=== PATIENT | female | born 1995 | race African-American/Black ===

== ENCOUNTER 2016-11-29 12:03 | Emergency (ER) | payer SELFPAY ==
[~2016-11-29] VITALS: Ht 152.4 cm; Wt 77.0 kg
[2016-11-29] MEDS ORDERED: ALBUTEROL (0.083%) 2.5MG/3ML NEB HHN STA (12:47)
[2016-11-29] MEDS ORDERED: SODIUM CHLORIDE 0.9% 1,000 ML IV ONE ×2 (12:47→14:00)
[2016-11-29] MEDS ORDERED: ACETAMINOPHEN 325MG TABLET PO STA (12:47)
[2016-11-29] MEDS ORDERED: KETOROLAC 30MG/ML VIAL IV STA (12:47)
[2016-11-29 13:09] LABS: BASOPHILS % 0.2 % (0.0-2.0); DIFFERENTIAL COMMENT 0; EOSINOPHILS % 0.1 % (0.0-5.0); HEMATOCRIT. 36.1 % (36.0-48.0); HEMOGLOBIN. 11.6 g/dL (12.0-16.0); LYMPHOCYTES % 19.7 % (20.0-50.0); MEAN CORPUSCULAR HEMOGLOBIN 24.3 pg (28.0-32.0); MEAN CORPUSCULAR HGB CONC 32.2 g/dL (31.0-37.0); MEAN CORPUSCULAR VOLUME 75.5 fL (81.0-99.0); MEAN PLATELET VOLUME 9.2 fl (7.4-10.4); MONOCYTES % 12.2 % (2.0-8.0); NEUTROPHILS % 67.8 % (40.0-76.0); PLATELET 171 x1000/uL (130-400); RED BLOOD CELL COUNT 4.78 mill/uL (4.2-5.4); RED CELL DISTRIBUTION WIDTH 17.9 % (11.6-14.6); WHITE BLOOD COUNT 7.6 x1000/uL (4.5-11.0)
[2016-11-29 13:15] LABS: CHLORIDE 102 mEq/L (98-107); INDEX HEMOLYSI 1 (1-3); INDEX ICTERIC 1 (1-4); INDEX LIPEMIC 1 (1-3)
[2016-11-29 13:23] LABS: ALANINE AMINOTRANSFERASE 14 IU/L (13-61); ALBUMIN 3.2 g/dL (3.4-5.0); ANION GAP 14; CALCIUM 8.7 mg/dL (8.5-10.1); CARBON DIOXIDE 27 mEq/L (21-32); HCG SCREEN NEGATIVE; UREA NITROGEN BLOOD 9 mg/dL (7-21); eGFR > 60 mL/min (>60)
[2016-11-29 13:28] LABS: CLARITY URINE CLOUDY (CLEAR); COLOR URINE DARK YELLOW (YELLOW); GLUCOSE URINE NEGATIVE (NEGATIVE); KETONES URINE 3+ (NEGATIVE); LEUKOCYTE ESTERASE URINE 2+ (NEGATIVE); NITRITE URINE NEGATIVE (NEGATIVE); OCCULT BLOOD URINE NEGATIVE (NEGATIVE); PH URINE 5.5 (4.5-8.0); PROTEIN URINE TRACE (NEGATIVE); SPECIFIC GRAVITY URINE 1.029 (1.005-1.030)
[2016-11-29 13:49] LABS: RBC URINE 0-2 /hpf (0-2); SQUAMOUS EPITHELIAL CELL URINE 3+ /lpf (RARE/1+)
[2016-11-29 13:50] LABS: BACTERIA URINE TRACE; MUCUS URINE 2+ /lpf (< = 2+)
[2016-11-29 15:10] VITALS: BP 121/73
== END 2016-11-29 16:58 | disposition home or self-care (01) ==
LOC: ER 13:11
DX: J18.9 Pneumonia, unspecified organism (principal); N39.0 Urinary tract infection, site not specified; I51.7 Cardiomegaly; J45.909 Unspecified asthma, uncomplicated; Z88.0 Allergy status to penicillin
CPT/HCPCS: 36415; 71010; 80053; 81001; 83605; 84703; 85025; 87070; 87430; 87804; 94640; 96361; 96374; 99285; J1885; J7030; J7611; Z7610

== ENCOUNTER 2017-10-17 20:02 | Emergency (ER) | payer MEDICAID ==
[~2017-10-17] VITALS: Ht 160 cm; Wt 82.0 kg
[2017-10-17 20:56] VITALS: BP 129/80
== END 2017-10-18 | disposition left against medical advice (07) ==
LOC: ER 23:10
DX: Z53.21 Procedure and treatment not carried out due to patient leaving prior to being seen by health care provider (principal)

== ENCOUNTER 2018-11-04 15:05 | Emergency (ER) | payer MEDICAID | END 2018-11-04 16:21 | disposition left against medical advice (07) | LOC: ER 15:05 | DX: R51 Headache (principal); R42 Dizziness and giddiness; R11.0 Nausea; Z53.21 Procedure and treatment not carried out due to patient leaving prior to being seen by health care provider ==

== ENCOUNTER 2018-11-06 11:12 | Emergency (ER) | payer MEDICAID ==
[~2018-11-06] VITALS: Ht 152.4 cm; Wt 95.0 kg
[2018-11-06] MEDS ORDERED: MECLIZINE 25MG TABLET PO ONE (14:45)
[2018-11-06 14:50] VITALS: BP 117/69
== END 2018-11-06 14:52 | disposition home or self-care (01) ==
LOC: ER 11:12
DX: S09.8XXA Other specified injuries of head, initial encounter (principal); J45.909 Unspecified asthma, uncomplicated; W22.8XXA Striking against or struck by other objects, initial encounter; Y93.89 Activity, other specified; Y92.89 Other specified places as the place of occurrence of the external cause; Y99.8 Other external cause status; Z88.0 Allergy status to penicillin; Z98.890 Other specified postprocedural states
CPT/HCPCS: 81025; 99282; J8597

== ENCOUNTER 2019-04-06 16:01 | Emergency (ER) | payer MEDICAID ==
[~2019-04-06] VITALS: Ht 152.4 cm; Wt 93.0 kg
[2019-04-06 22:18] LABS: BASOPHILS % 0.4 % (0.0-2.0); EOSINOPHILS % 2.8 % (0.0-5.0); HEMATOCRIT. 37.6 % (36.0-48.0); HEMOGLOBIN. 12.1 g/dL (12.0-16.0); LYMPHOCYTES % 46.3 % (20.0-50.0); MEAN CORPUSCULAR HEMOGLOBIN 24.7 pg (28.0-32.0); MEAN CORPUSCULAR VOLUME 76.7 fL (81.0-99.0); MEAN PLATELET VOLUME 9.4 fl (7.4-10.4); MONOCYTES % 7.2 % (2.0-8.0); NEUTROPHILS % 43.3 % (40.0-76.0); PLATELET 193 x1000/uL (130-400); RED BLOOD CELL COUNT 4.91 mill/uL (4.2-5.4); RED CELL DISTRIBUTION WIDTH 17.1 % (11.6-14.6)
[2019-04-06 22:20] LABS: CHLORIDE 105 mEq/L (98-107)
[2019-04-06 22:22] LABS: HCG SCREEN NEGATIVE
[2019-04-06 22:31] LABS: CLARITY URINE CLEAR (CLEAR); COLOR URINE YELLOW (YELLOW); KETONES URINE NEGATIVE (NEGATIVE); LEUKOCYTE ESTERASE URINE NEGATIVE (NEGATIVE); NITRITE URINE NEGATIVE (NEGATIVE); OCCULT BLOOD URINE NEGATIVE (NEGATIVE); PH URINE 6.5 (4.5-8.0); PROTEIN URINE NEGATIVE (NEGATIVE); SPECIFIC GRAVITY URINE 1.026 (1.005-1.030)
[2019-04-07 02:39] VITALS: BP 112/62
== END 2019-04-07 02:47 | disposition home or self-care (01) ==
LOC: ER 16:01
DX: N93.8 Other specified abnormal uterine and vaginal bleeding (principal); J45.909 Unspecified asthma, uncomplicated; Z88.0 Allergy status to penicillin
CPT/HCPCS: 36415; 76830; 76856; 80048; 81025; 84703; 87210; 87491; 87591; 99284